=== PATIENT | female | born 1990 | race American Indian/Alaskan Native ===

== ENCOUNTER 2019-11-14 18:39 | Emergency (ER) | payer OTHER ==
[2019-11-14 19:51] VITALS: BP 161/71
[2019-11-14] MEDS ORDERED: METOCLOPRAMIDE 10 MG TAB PO ONE (23:41)
[2019-11-14] MEDS ORDERED: dexAMETHasone 20 MG/5 ML VIAL IM ONE (23:41)
[2019-11-14] MEDS ORDERED: diphenhydrAMINE 25 MG CAP PO ONE (23:41)
[2019-11-14] MEDS ORDERED: ACETAMINOPHEN 500 MG TAB PO ONE (23:41)
--- NOTE | 2019-11-15 00:53 | Emergency Department Report ---
ED Headache HPI - General Chief Complaint: Headache Stated Complaint: N/V/HEADACHE Time Seen by Provider: 11/14/19 23:26 - History of Present Illness Initial Comments: pt is a 29 y/o aaf with hx of migraine headache who presents for headache right frontal radiating to right parietal x 2 weeks, pt is described as sharp and achy 4/10 intermittent, pain is exacerbated by movement , pain is relieved rest. pt states mild photophobia , and occassional n/v. This is the usual course for headache for this patient. Headache usuallyh controlled wtih otch excedrin po. Timing/Duration: other (2 weeks ) Quality: moderate Recent Head Trauma: chronic headaches Modifying Factors: improves with: exposure to light, movement Associated Symptoms: nausea/vomiting. denies: denies symptoms Allergies/Adverse Reactions: Allergies tuberculin,PPD,multi-puncture Allergy (Verified 11/14/19 19:48) Hives Home Medications: Ambulatory Orders Acetaminophen [Acetaminophen TAB] 1,000 mg PO Q6HR PRN #30 tablet 11/15/19 Metoclopramide [Reglan] 10 mg PO TID PRN #30 tab 11/15/19 diphenhydrAMINE [Benadryl CAP] 25 mg PO Q8HR PRN #30 capsule 11/15/19 medroxyPROGESTERone ACETATE [Provera] 10 mg PO QDAY #7 tablet 11/15/19 ED Review of Systems ROS: Stated complaint: N/V/HEADACHE Other details as noted in HPI Constitutional: denies: chills, fever Eyes: denies: eye pain, eye discharge, vision change ENT: denies: ear pain, throat pain Respiratory: denies: cough, shortness of breath, wheezing Cardiovascular: as per HPI Endocrine: no symptoms reported Gastrointestinal: abdominal pain. denies: nausea, diarrhea Genitourinary: denies: urgency, dysuria, discharge Musculoskeletal: denies: back pain, joint swelling, arthralgia Skin: as per HPI. denies: rash, lesions, pruritus Neurological: denies: headache, weakness, paresthesias Psychiatric: denies: anxiety, depression Hematological/Lymphatic: denies: easy bleeding, easy bruising ED Past Medical Hx - Past Medical History Previous Medical History?: Yes Hx Headaches / Migraines: Yes Additional medical history: PCOS - Surgical History Past Surgical History?: Yes Additional Surgical History: Tonsillectomy - Social History Smoking Status: Current Every Day Smoker Substance Use Type: None - Medications Home Medications: Home Medications Medication Instructions Recorded Confirmed Last Taken Type Acetaminophen [Acetaminophen TAB] 1,000 mg PO Q6HR PRN #30 tablet 11/15/19 Unknown Rx Metoclopramide [Reglan] 10 mg PO TID PRN #30 tab 11/15/19 Unknown Rx diphenhydrAMINE [Benadryl CAP] 25 mg PO Q8HR PRN #30 capsule 11/15/19 Unknown Rx medroxyPROGESTERone ACETATE 10 mg PO QDAY #7 tablet 11/15/19 Unknown Rx [Provera] ED Physical Exam - General Limitations: No Limitations General appearance: alert, in no apparent distress - Head Head exam: Present: atraumatic, normocephalic - Eye Eye exam: Present: normal appearance, PERRL, EOMI. Absent: conjunctival injection Pupils: Present: normal accommodation. Absent: unequal - ENT ENT exam: Present: normal exam, normal orophraynx, mucous membranes moist, TM's normal bilaterally, normal external ear exam - Neck Neck exam: Present: normal inspection, full ROM. Absent: tenderness, lymphadenopathy - Respiratory Respiratory exam: Present: normal lung sounds bilaterally. Absent: respiratory distress, wheezes, stridor, chest wall tenderness - Cardiovascular Cardiovascular Exam: Present: regular rate, normal heart sounds - GI/Abdominal GI/Abdominal exam: Present: soft, normal bowel sounds. Absent: guarding, rebound, rigid, bruit, hernia - Rectal Rectal exam: Present: deferred - External exam: Present: other (deferred ) - Extremities Exam Extremities exam: Present: normal inspection, full ROM, normal capillary refill. Absent: tenderness - Back Exam Back exam: Present: normal inspection, full ROM, vertebral tenderness. Absent: tenderness, CVA tenderness (R), CVA tenderness (L), rash noted - Neurological Exam Neurological exam: Present: alert, oriented X3, CN II-XII intact, normal gait, reflexes normal. Absent: motor sensory deficit - Psychiatric Psychiatric exam: Present: normal affect, normal mood - Skin Skin exam: Present: warm, dry, intact, normal color. Absent: rash ED Course Vital Signs 11/14/19 19:48 Temperature 99.6 F Pulse Rate 99 H Respiratory 18 Rate Blood Pressure 161/71 O2 Sat by Pulse 100 Oximetry ED Medical Decision Making - Medical Decision Making Headache is improved, with medications given in ed, pt will be dc to home with rx for same, pt verbalized agreement and understandingg of dc plan. pt dc'd to home in stable at this time. Critical care attestation.: If time is entered above; I have spent that time in minutes in the direct care of this critically ill patient, excluding procedure time. ED Disposition Clinical Impression: Headache Qualifiers: Headache type: unspecified Headache chronicity pattern: unspecified pattern Intractability: not intractable Qualified Code(s): R51 - Headache Disposition: DC-01 TO HOME OR SELFCARE Is pt being admited?: No Does the pt Need Aspirin: No Condition: Stable Instructions: Acute Headache (ED) Prescriptions: Acetaminophen [Acetaminophen TAB] 1,000 mg PO Q6HR PRN #30 tablet PRN Reason: Headache diphenhydrAMINE [Benadryl CAP] 25 mg PO Q8HR PRN #30 capsule PRN Reason: Headache medroxyPROGESTERone ACETATE [Provera] 10 mg PO QDAY #7 tablet Metoclopramide [Reglan] 10 mg PO TID PRN #30 tab PRN Reason: Headache Referrals: COCO JACOB MD [Staff Physician] - 3-5 Days CHACHO SALAS MD [Staff Physician] - 3-5 Days Forms: Work/School Release Form(ED) Time of Disposition: 01:34
== END 2019-11-15 01:40 | disposition home or self-care (01) ==
LOC: ED 18:39
DX: R51 Headache (principal); F17.200 Nicotine dependence, unspecified, uncomplicated; Z79.899 Other long term (current) drug therapy
CPT/HCPCS: 96372; 99282; J1100